=== PATIENT | male | born 1950 | race Two or more races ===

== ENCOUNTER 2024-12-10 11:20 | Emergency (ER) | payer OTHER ==
[~2024-12-10] VITALS: Ht 205.7 cm; Wt 60.8 kg
[2024-12-10 11:49] VITALS: BP 113/71; O2SAT 100
[2024-12-10] MEDS ORDERED: COZAAR25 MG (11:52)
== END 2024-12-10 14:32 | disposition home or self-care (01) ==
LOC: ER 12:13
DX: K40.90 Unilateral inguinal hernia, without obstruction or gangrene, not specified as recurrent (principal); I10 Essential (primary) hypertension

== ENCOUNTER 2025-02-15 14:15 | Emergency (ER) | payer OTHER ==
[~2025-02-15] VITALS: Ht 175.3 cm; Wt 68.0 kg
[~2025-02-15 14:15] MED LIST: COZAAR25 MG
== END 2025-02-15 17:35 | disposition home or self-care (01) ==
LOC: ER 14:15
DX: K40.90 Unilateral inguinal hernia, without obstruction or gangrene, not specified as recurrent (principal)